=== PATIENT | female | born 1975 | race Caucasian/White ===

== ENCOUNTER 2017-09-21 19:11 | Emergency (ER) | payer OTHER, MEDICAID ==
[2017-09-21 19:23] VITALS: BP 118/90
--- NOTE | 2017-09-21 19:33 | EDPHY ---
H & P Stated Complaint: LLFRONT TOOTH PAIN /ABSCESS Source: Patient Exam Limitations: No limitations - Personal History Current Tetanus/Diphtheria Vaccine: No Current Tetanus Diphtheria and Acellular Pertussis (TDAP): No Tetanus Vaccine Date: 2003 - Medical/Surgical History Hx Asthma: No Hx Chronic Respiratory Disease: No Hx Diabetes: No Hx Cardiac Disease: No Hx Renal Disease: No Hx Cirrhosis: No Hx Alcoholism: No Hx HIV/AIDS: No Hx Splenectomy or Spleen Trauma: No Other PMH: CROHNS/ILEOSTOMY, anxiety - Social History Smoking Status: Never smoked Time Seen by Provider: 09/21/17 19:32 HPI/ROS: HPI: This is a 42-year-old female who presents with Chief Complaint: Left lower front tooth pain Location: Left lower front teeth Quality: Pain Duration: 2-3 days Signs and Symptoms: No bleeding, no radiation, no numbness, no weakness, no tingling, no headache, no decreased range of motion, no swelling, + pain, no fever, no difficulty swallowing, + pain with hot and cold foods, + pain with chewing Timing: Acute Severity: 01/15 Context: Patient reports over the last 2-3 days, she has had gradually worsening pain, of her left lower front teeth. She reports that she has multiple dental cavities. She follows with Dental Aide, Dr. Perkins. She called yesterday for an appointment but she has not received a phone call back. She reports sensitivity to hot and cold foods. She reports increased pain in her front teeth when she chews on hard objects. Denies jaw swelling/difficulty swallowing/difficulty talking/neck pain. She has tried no [id number] pain medication. Modifying Factors: None Comment: ROS: see HPI Constitutional: No fever, no chills, no weight loss Eyes: No blurred vision Respiratory: No shortness of breath, no cough Cardiovascular: No chest pain Gastrointestinal: No nausea, no vomiting no diarrhea Genitourinary: No dysuria Extremities: No myalgias Neurologic: No weakness, no numbness Skin: No rashes Hematologic: No bruising, no bleeding MEDICAL/SURGICAL/SOCIAL HISTORY: Medical/surgical history: CROHN DISEASE/ILEOSTOMY, anxiety Social history: Unemployed. Family history noncontributory. CONSTITUTIONAL: Polite and cooperative adult white female, awake and alert, no obvious distress HEENT: Atraumatic and normocephalic, PERRL, EOMI. Tympanic membranes clear. Oropharynx clear, poor dentition, tooth #24 and #23 black in color; no gingival erythema/swelling/fluctuance. No jaw swelling. No malocclusion. no exudate and moist pink mucosa. Airway patent. No lymphadenopathy. No meningismus. Cardiovascular: Normal S1/S2, regular rate, regular rhythm, without murmur rub or gallop. PULMONARY/CHEST: Symmetrical and nontender. Clear to auscultation bilaterally. Good air movement. No accessory muscle usage. ABDOMEN: Soft, nondistended, nontender, no rebound, no guarding, no peritoneal signs, no masses or organomegaly. No CVAT. EXTREMITIES: 2/2 pulses, strength 5/5, no deformities, no clubbing, no cyanosis or edema. NEUROLOGICAL: no focal neuro deficits. GCS 15. SKIN: Warm and dry, no erythema. no rash. Good capillary refill. (Tamika Box) Constitutional: Initial Vital Signs Temperature (C) 37.1 C 09/21/17 19:21 Heart Rate 67 09/21/17 19:21 Respiratory Rate 18 09/21/17 19:21 Blood Pressure 118/90 H 09/21/17 19:21 O2 Sat (%) 98 09/21/17 19:21 O2 Delivery Mode Room Air Allergies/Adverse Reactions: morphine Allergy (Mild, Verified 09/21/17 19:23) Itching Home Medications: Medication Instructions Recorded ALPRAZolam [Xanax 1 MG (*)] 1 mg PO BID 07/11/13 HYDROcodone/APAP 10/325 [[place] 1 tab PO Q4 PRN 07/11/13 10/325 (*)] FENTANYL 07/15/15 Furosemide 07/15/15 Promethazine HCl [Phenergan 25mg 25 mg PO Q6-8PRN PRN #20 tab 07/15/15 (RX)] Amoxicillin Trihydrate 500 mg PO TID 7 Days cap 09/21/17 [Amoxicillin] Gabapentin 600 mg PO 09/21/17 Propranolol HCl 20 mg PO 09/21/17 Venaflex 09/21/17 traMADol [Ultram 50 mg (*)] 50 mg PO Q8 PRN #6 tab 09/21/17 Medical Decision Making ED Course/Re-evaluation: No signs of facial cellulitis/periapical abscess/dehydration Given Percocet and Amoxicillin with adequate pain relief. Passed p.o. Trial prior to discharge. Advised to follow up with Dental Aide This patient was seen under the supervision of my secondary supervising physician. I evaluated care for this patient independently. (Tamika Box) Differential Diagnosis: Differential diagnosis includes but is not limited to dental cavity, dental trauma, dental abscess, gingivitis. (Tamika Box) Other Provider: PDMP search 09/12/17 120 hydrocodone 10/acetaminophen, 09/12/17 fentanyl patch, 120 hydrocodone/aceta. (Jose Carcamo) - Data Points Medications Given: Discontinued Medications Amoxicillin (Amoxicillin) 1,000 mg PO EDNOW ONE PRN Reason: Protocol Stop: 09/21/17 19:36 Last Admin: 09/21/17 19:47 Dose: 1,000 mg Departure - Departure Disposition: Home, Routine, Self-Care Clinical Impression: Odontalgia, Dental caries Condition: Good Instructions: Amoxicillin (By mouth), Tramadol (By mouth), Dental Abscess (ED) , Toothache (ED) Additional Instructions: Consume a minimum of 8-10 glasses of water or electrolyte fluid replacement drinks that include Gatorade, Powerade, Pedialyte. Eat a soft diet and avoid hot and cold foods/liquids until all tooth pain has resolved. Take Amoxicillin 3 times a day x 7 days. Follow-up with Dental Aide, Dr. Perkins, as soon as possible. Referrals: [facility] [Outside] - 2-3 days, call for appt. Prescriptions: Amoxicillin Trihydrate [Amoxicillin] 500 mg PO TID 7 Days cap traMADol [Ultram 50 mg (*)] 50 mg PO Q8 PRN #6 tab PRN Reason: Pain, Severe
== END 2017-09-21 19:52 | disposition home or self-care (01) ==
DX: K02.9 Dental caries, unspecified (principal)

== ENCOUNTER 2018-06-01 12:29 | Emergency (ER) | payer OTHER, MEDICAID ==
[2018-06-01] MEDS ORDERED: NS 1,000 ML IV ONE ×3 (12:59→14:34)
[2018-06-01] MEDS ORDERED: ONDANSETRON 4 MG/2 ML VIAL IVP ONE (12:59)
--- NOTE | 2018-06-01 13:01 | EDPHY ---
H & P Stated Complaint: N/V abd pain - Personal History LMP (Females 10-55): 8-14 Days Ago Current Tetanus/Diphtheria Vaccine: Yes Tetanus Vaccine Date: 2003 - Medical/Surgical History Hx Asthma: No Hx Chronic Respiratory Disease: No Hx Diabetes: No Hx Cardiac Disease: No Hx Renal Disease: No Hx Cirrhosis: No Hx Alcoholism: No Hx HIV/AIDS: No Hx Splenectomy or Spleen Trauma: No Other PMH: CROHNS/ILEOSTOMY, anxiety - Social History Smoking Status: Never smoked Time Seen by Provider: 06/01/18 12:52 HPI/ROS: Chief Complaint: Abdominal pain, nausea, vomiting HPI: 33-year-old woman with a history of chronic abdominal pain secondary to multiple Crohn's surgeries is presenting with 2 days of nausea vomiting and unable to keep anything down. Patient states that because she has not been able to keep anything down she has not been able to take her [place]. She is having abdominal pain consistent with her usual. No new symptoms. No fevers or chills. She is having some right flank pain as well. She has not urinated for 2 days secondary to her dehydration. Pain is currently about a 8/10. ROS: 10 systems were reviewed and were negative except those elements noted in the HPI. PMH: Crohn's disease, chronic abdominal pain Social History: No smoking, no alcohol, no recreational drug use Family History: non-contributory Physical Exam: Gen: Awake, Alert, No Distress HEENT: Nose: no rhinorrhea Eyes: PERRLA, EOMI Mouth: Moist mucosa Neck: Supple, no JVD Chest: nontender, lungs clear to auscultation Heart: S1, S2 normal, no murmur Abd: Soft, mild generalized tenderness, nonfocal, no guarding Back: no CVA tenderness, no midline tenderness Ext: no edema, non-tender Skin: no rash Neuro: CN II-XII intact, Sensation grossly intact, Strength 5/5 in bilateral upper and lower extremities (Jurgen Still) Constitutional: Initial Vital Signs Temperature (C) 36.5 C 06/01/18 12:33 Heart Rate 92 06/01/18 12:33 Respiratory Rate 18 06/01/18 12:33 Blood Pressure 105/77 06/01/18 12:33 O2 Sat (%) 95 06/01/18 12:33 O2 Delivery Mode Room Air Allergies/Adverse Reactions: morphine Allergy (Mild, Verified 06/01/18 12:36) Itching Home Medications: Medication Instructions Recorded ALPRAZolam [Xanax 1 MG (*)] 1 mg PO BID 07/11/13 HYDROcodone/APAP 10 [[place] 1 tab PO Q4 PRN 07/11/13 10325 (*)] FENTANYL 07/15/15 Furosemide 07/15/15 Promethazine HCl [Phenergan 25mg 25 mg PO Q6-8PRN PRN #20 tab 07/15/15 (RX)] Amoxicillin Trihydrate 500 mg PO TID 7 Days cap 09/21/17 [Amoxicillin] Gabapentin 600 mg PO 09/21/17 Propranolol HCl 20 mg PO 09/21/17 Venaflex 09/21/17 traMADol [Ultram 50 mg (*)] 50 mg PO Q8 PRN #6 tab 09/21/17 Medical Decision Making ED Course/Re-evaluation: 43-year-old with nausea vomiting dehydration. Soft benign abdomen. Normal ostomy output. Awaiting urinalysis results. Pain is somewhat improved is requesting more pain medication. Patient signed out to Dr. Hay pending improvement in condition. (Jurgen Still) 3:00 p.m.-I assumed care of this patient from Dr. Dos Santos. She has a history of narcotic dependence and presents with persistent nausea and vomiting. The plan is to discharge her home after IV hydration. Already given multiple medications , now requesting Benadryl. Benadryl 25 mg IV given. Urinalysis reveals 3-5 white blood cells, doubt UTI, will send urine culture. Interestingly, the patient's specific gravity is low, which indicates that she is not significantly dehydrated. 4 p.m.-resting comfortably with eyes closed. Tolerating oral fluids well on discharge, will discharge home. Follow up with PCP. (Emelia Hay) Differential Diagnosis: Differential diagnosis includes though it is not limited to appendicitis, cholecystitis, diverticulitis, pyelonephritis, bowel perforation, small bowel obstruction. (Emelia Hay) - Data Points Laboratory Results: Laboratory Results 06/01/18 13:36 06/01/18 13:36 06/01/18 06/01/18 06/01/18 15:22 13:36 13:36 WBC RBC Hgb Hct MCV MCH MCHC RDW Plt Count MPV Neut % (Auto) Lymph % (Auto) [place] % (Auto) Eos % (Auto) Baso % (Auto) Nucleat RBC Rel Count Absolute Neuts (auto) Absolute Lymphs (auto) Absolute Monos (auto) Absolute Eos (auto) Absolute Basos (auto) Absolute Nucleated RBC Immature Gran % Immature Gran # Sodium 140 mEq/L mEq/L (135-145) Potassium 4.5 mEq/L mEq/L (3.5-5.2) Chloride 111 mEq/L H mEq/L (97-110) Carbon Dioxide 22 mEq/l mEq/l (22-31) Anion Gap 7 mEq/L mEq/L (6-14) BUN 11 mg/dL mg/dL (7-23) Creatinine 0.7 mg/dL mg/dL (0.6-1.0) Estimated GFR > 60 Glucose 84 mg/dL mg/dL (70-100) Calcium 8.6 mg/dL mg/dL (8.5-10.4) Total Bilirubin 0.7 mg/dL mg/dL (0.1-1.4) AST 34 IU/L IU/L (14-46) ALT 24 IU/L IU/L (9-52) Alkaline Phosphatase 57 IU/L IU/L (38-126) Total Protein 6.4 g/dL g/dL (6.3-8.2) Albumin 3.6 g/dL g/dL (3.5-5.0) Lipase 42 IU/L IU/L (23-300) Beta HCG, Qual NEGATIVE Specimen Hemolysis 132 Urine Color YELLOW Urine Appearance CLEAR Urine pH 5.0 (5.0-7.5) Ur Specific [place] 1.016 (1.002-1.030) Urine Protein NEGATIVE (NEGATIVE) Urine Ketones NEGATIVE (NEGATIVE) Urine Blood 1+ H (NEGATIVE) Urine Nitrate NEGATIVE (NEGATIVE) Urine Bilirubin NEGATIVE (NEGATIVE) Urine Urobilinogen NEGATIVE EU EU (0.2-1.0) Ur Leukocyte Esterase NEGATIVE (NEGATIVE) Urine RBC 1-3 /hpf /hpf (0-3) Urine WBC 3-5 /hpf H /hpf (0-3) Ur Epithelial Cells TRACE /lpf /lpf (NONE-1+) Urine Mucus 2+ /lpf H /lpf (NONE-1+) Urine Glucose NEGATIVE (NEGATIVE) 06/01/18 13:36 WBC 9.81 10^3/uL H 10^3/uL (3.80-9.50) RBC 4.87 10^6/uL 10^6/uL (4.18-5.33) Hgb 14.8 g/dL g/dL (12.6-16.3) Hct 42.3 % % (38.0-47.0) MCV 86.9 fL fL (81.5-99.8) MCH 30.4 pg pg (27.9-34.1) MCHC 35.0 g/dL g/dL (32.4-36.7) RDW 12.4 % % (11.5-15.2) Plt Count 297 10^3/uL 10^3/uL (150-400) MPV 10.4 fL fL (8.7-11.7) Neut % (Auto) 74.4 % H % (39.3-74.2) Lymph % (Auto) 16.3 % % (15.0-45.0) [place] % (Auto) 6.2 % % (4.5-13.0) Eos % (Auto) 2.3 % % (0.6-7.6) Baso % (Auto) 0.5 % % (0.3-1.7) Nucleat RBC Rel Count 0.0 % % (0.0-0.2) Absolute Neuts (auto) 7.29 10^3/uL H 10^3/uL (1.70-6.50) Absolute Lymphs (auto) 1.60 10^3/uL 10^3/uL (1.00-3.00) Absolute Monos (auto) 0.61 10^3/uL 10^3/uL (0.30-0.80) Absolute Eos (auto) 0.23 10^3/uL 10^3/uL (0.03-0.40) Absolute Basos (auto) 0.05 10^3/uL 10^3/uL (0.02-0.10) Absolute Nucleated RBC 0.00 10^3/uL 10^3/uL (0-0.01) Immature Gran % 0.3 % % (0.0-1.1) Immature Gran # 0.03 10^3/uL 10^3/uL (0.00-0.10) Sodium Potassium Chloride Carbon Dioxide Anion Gap BUN Creatinine Estimated GFR Glucose Calcium Total Bilirubin AST ALT Alkaline Phosphatase Total Protein Albumin Lipase Beta HCG, Qual Specimen Hemolysis Urine Color Urine Appearance Urine pH Ur Specific [place] Urine Protein Urine Ketones Urine Blood Urine Nitrate Urine Bilirubin Urine Urobilinogen Ur Leukocyte Esterase Urine RBC Urine WBC Ur Epithelial Cells Urine Mucus Urine Glucose Medications Given: Discontinued Medications Diphenhydramine HCl (Benadryl Injection) 25 mg IVP EDNOW ONE Stop: 06/01/18 13:04 Last Admin: 06/01/18 13:50 Dose: 25 mg Diphenhydramine HCl (Benadryl Injection) 25 mg IVP EDNOW ONE Stop: 06/01/18 15:42 Last Admin: 06/01/18 15:47 Dose: 25 mg Famotidine (Pepcid) 20 mg IVP EDNOW ONE Stop: 06/01/18 14:26 Last Admin: 06/01/18 14:30 Dose: 20 mg Fentanyl (Sublimaze) 50 mcg IVP EDNOW ONE Stop: 06/01/18 13:04 Last Admin: 06/01/18 13:50 Dose: 50 mcg Fentanyl (Sublimaze) 50 mcg IVP EDNOW ONE Stop: 06/01/18 15:20 Last Admin: 06/01/18 15:24 Dose: 50 mcg Sodium Chloride (Ns) 1,000 mls @ 0 mls/hr IV ONCE ONE; Wide Open PRN Reason: Protocol Stop: 06/01/18 13:00 Last Admin: 06/01/18 13:40 Dose: 1,000 mls Sodium Chloride (Ns) 1,000 mls @ 0 mls/hr IV ONCE ONE; Wide Open PRN Reason: Protocol Stop: 06/01/18 13:02 Last Admin: 06/01/18 14:06 Dose: 1,000 mls Sodium Chloride (Ns) 1,000 mls @ 0 mls/hr IV ONCE ONE; Wide Open PRN Reason: Protocol Stop: 06/01/18 14:35 Last Admin: 06/01/18 14:38 Dose: 1,000 mls Ketorolac Tromethamine (Toradol) 15 mg IVP EDNOW ONE Stop: 06/01/18 14:35 Last Admin: 12/25/18 14:39 Dose: 15 mg Ondansetron HCl (Zofran) 4 mg IVP EDNOW ONE Stop: 06/01/18 13:00 Last Admin: 06/01/18 13:50 Dose: 4 mg Ondansetron HCl (Zofran Odt 4 Mg Prepack#2) 1 btl TAKEHOME EDNOW ONE Stop: 06/01/18 15:59 Last Admin: 06/01/18 16:28 Dose: 1 btl Promethazine HCl (Phenergan) 12.5 mg IVP ONCE ONE Stop: 06/01/18 14:26 Last Admin: 06/01/18 14:31 Dose: 12.5 mg Departure - Departure Disposition: Home, Routine, Self-Care Clinical Impression: Vomiting Qualifiers: Vomiting type: unspecified Vomiting Intractability: intractable Nausea presence : with nausea Qualified Code(s): R11.2 - Nausea with vomiting, unspecified Condition: Good Instructions: Ondansetron (By mouth), Acute Nausea and Vomiting (ED) Additional Instructions: 1. Clear liquids for 24 hours. 2. Advance diet as tolerated. I suggest the BRAT diet to start: bananas, rice, applesauce and toast. 3. Return for worsening symptoms, persistent vomiting, abdominal pain, any concerns. 4. Zofran 1 tablet under the tongue every 6 hr as needed for nausea. Referrals: Christian Smart MD [Primary Care Provider] - As per Instructions
[2018-06-01] MEDS ORDERED: fentaNYL 100 MCG/2 ML INJ IVP ONE ×2 (13:03→15:19)
[2018-06-01 13:42] LABS: PLATELET COUNT 297 10^3/uL (150-400)
[2018-06-01] MEDS ORDERED: PROMETHAZINE HCL 25 MG/ML INJ IVP ONE (14:25)
[2018-06-01] MEDS ORDERED: FAMOTIDINE 20 MG/2 ML SDV IVP ONE (14:25)
[2018-06-01] MEDS ORDERED: KETOROLAC 15 MG/1 ML SDV IVP ONE (14:34)
[2018-06-01] MEDS ORDERED: ONDANSETRON 4MG PREPACK#2 BTL TAKEHOME ONE (15:58)
[2018-06-01 17:56] VITALS: BP 100/50
== END 2018-06-01 17:55 | disposition home or self-care (01) ==
DX: R11.2 Nausea with vomiting, unspecified (principal); K50.90 Crohn's disease, unspecified, without complications; F11.20 Opioid dependence, uncomplicated; E86.9 Volume depletion, unspecified
CPT/HCPCS: 96361; 96374; 96375; 96376; 99284; J1200; J1885; J2405; J2550; J3010

== ENCOUNTER 2018-07-02 10:16 | Emergency (ER) | payer OTHER, MEDICAID ==
--- NOTE | 2018-07-02 11:06 | EDPHY ---
H & P Stated Complaint: escudero n/v Time Seen by Provider: 07/02/18 11:01 HPI/ROS: HPI: This is a 43-year-old female who presents with Chief Complaint: Headache, nausea, vomiting Location: Head Quality: Pain Duration: SINCE THURSDAY Signs and Symptoms: no fever, + nausea, + vomiting, no photophobia, no noise sensitivity, no neck stiffness, no ear pain, no tinnitus, no nasal congestion, no sinus pressure, no weakness, no radiation, no aura Timing: Acute on chronic Severity: [id number] Context: Patient reports that she has a history of Crohn's disease status post ileostomy presents with onset Thursday of headache that she describes in the frontal portion that is consistent for her normal types of headaches accompanied by nausea and vomiting but denies photophobia, noise sensitivity, abdominal pain. Patient reports that she is followed by pain management and normally takes Bath 10 mg/325 mg tablets every 4-6 hours. She reports that over the last few days she has "only been able to keep 1-2 pills down." Patient denies any diarrhea, fever, back pain, urinary symptoms. Patient denies worse headache of her life or thunderclap symptoms. Patient has no prior history of migraine headaches and believes that this is related to poor oral intake and "inability to consume pain medications secondary to nausea." Patient is requesting IV pain medications. Patient reports that her abdomen feels the same as it always does and does not believe that this is related to her abdomen. Ileostomy is draining yellow stool. Modifying Factors: Bath Comment: ROS: A comprehensive 10 system review of systems is otherwise negative aside from elements mentioned in the history of present illness. MEDICAL/SURGICAL/SOCIAL HISTORY: Medical history: anxiety. LMP over 28 days ago. Surgical history: CROHN, ILEOSTOMY Social history: Never smoked. Family history noncontributory. CONSTITUTIONAL: Well-developed, well-nourished nontoxic-appearing middle-aged white female, awake and alert, no obvious distress HEENT: Atraumatic and normocephalic, PERRL, EOMI. Nares patent; no rhinorrhea; no nasal mucosal edema. Tympanic membranes clear. Oropharynx clear, no exudate and moist pink mucosa. Airway patent. No lymphadenopathy. No meningismus. Cardiovascular: Normal S1/S2, regular rate, regular rhythm, without murmur rub or gallop. PULMONARY/CHEST: Symmetrical and nontender. Clear to auscultation bilaterally. Good air movement. No accessory muscle usage. ABDOMEN: Soft, nondistended, mild periumbilical tenderness, ileostomy present. no rebound, no guarding, no peritoneal signs, no masses or organomegaly. No CVAT. EXTREMITIES: 2/2 pulses, strength 5/5, no deformities, no clubbing, no cyanosis or edema. NEUROLOGICAL: no focal neuro deficits. GCS 15. Cranial nerves 2-12 grossly intact. SKIN: Warm and dry, no erythema. no rash. Good capillary refill. Source: Patient, Old records Exam Limitations: No limitations - Personal History LMP (Females 10-55): Over 28 Days Ago Current Tetanus Diphtheria and Acellular Pertussis (TDAP): Unsure Tetanus Vaccine Date: 2003 - Medical/Surgical History Hx Asthma: No Hx Chronic Respiratory Disease: No Hx Diabetes: No Hx Cardiac Disease: No Hx Renal Disease: No Hx Cirrhosis: No Hx Alcoholism: No Hx HIV/AIDS: No Hx Splenectomy or Spleen Trauma: No Other PMH: CROHNS/ILEOSTOMY, anxiety - Social History Smoking Status: Never smoked Constitutional: Initial Vital Signs Temperature (C) 36.9 C 07/02/18 10:23 Heart Rate 91 07/02/18 10:23 Respiratory Rate 18 07/02/18 10:23 Blood Pressure 118/71 07/02/18 10:23 O2 Sat (%) 96 07/02/18 10:23 O2 Delivery Mode Room Air Allergies/Adverse Reactions: morphine Allergy (Mild, Verified 07/02/18 10:22) Itching Home Medications: Medication Instructions Recorded ALPRAZolam [Xanax 1 MG (*)] 1 mg PO BID 07/11/13 HYDROcodone/APAP 10/325 [Bath 1 tab PO Q4 PRN 07/11/13 10/325 (*)] Furosemide 07/15/15 Gabapentin 600 mg PO 09/21/17 Ondansetron Odt [Zofran Odt 4 mg 4 mg PO Q4 PRN #12 tab 07/02/18 (*)] Promethazine HCl 25 mg PO Q6 PRN #10 tablet 07/02/18 Medical Decision Making - Diagnostics Imaging Results: Imaging Impressions Abdomen Ultrasound 07/02/18 12:47 Impression: Uncomplicated cholelithiasis. Findings were discussed with Tamika Box PA-C at 13:55, on 07/02/2018. ED Course/Re-evaluation: Vital signs reviewed and stable upon arrival. Chart review shows that patient was here in May for similar complaints and received IV fentanyl 100 mcg. IV access, laboratory studies ordered I do not believe imaging of the head is indicated at this time is not worse headache of her life and no thunderclap symptoms. Abdomen is soft and nontender and I doubt surgical process. Patient given 3 L normal saline, IV Haldol 2.5 mg, IV Benadryl 50 mg, IV promethazine 12.5 mg. I Would like to try to avoid given patient opiate pain medications. [facility] aware does not show any opiate pain medications that the patient has received over the last year which is very interesting when she says that she is followed by pain management and takes Bath 10 mg/325 mg every 4-6 hours scheduled. 1205: Notified by RN that patient requesting IV Ativan. IV Ativan 1 mg ordered. 1206: Labs reviewed and show WBC 16 K with left shift, elevated T bili and conjugated bili. No acute kidney injury. Carbon dioxide 14, anion gap 20 1210: Chart review in [address] abdomen and pelvis scan shows cholelithiasis without cholecystitis. Right upper quadrant ultrasound ordered. Patient now complaining of burning in her esophagus and requesting pain medications for esophageal burning and reflux. IV Protonix 40 mg given 1310: marketing technology coordinator at bedside 1340: Called by radiologist, Dr. Urbina, Ultrasound shows 1 gallstone measuring 11 mm but no nicholas signs of cholecystitis. Normal common bile duct diameter. Referral to General surgery outpatient. Patient requesting home medications. Given Bath 10/325 mg per home dose. No episodes of vomiting 4 hr while in the emergency room. She will be discharged home with Zofran and Phenergan. This patient was seen under the supervision of my secondary supervising physician. I evaluated care for this patient with attending. Discussed this patient with Dr. Carcamo. Differential Diagnosis: Headache including but not limited to subarachnoid hemorrhage, migraine headache , tension headache and infectious causes such as meningitis, pharyngitis and sinusitis. - Data Points Laboratory Results: Laboratory Results 07/02/18 11:00 07/02/18 11:00 07/02/18 07/02/1819 11:00 11:00 11:00 WBC 16.11 10^3/uL H 10^3/uL (3.80-9.50) RBC 5.79 10^6/uL H 10^6/uL (4.18-5.33) Hgb 18.1 g/dL H g/dL (12.6-16.3) Hct 51.5 % H % (38.0-47.0) MCV 88.9 fL fL (81.5-99.8) MCH 31.3 pg pg (27.9-34.1) MCHC 35.1 g/dL g/dL (32.4-36.7) RDW 12.7 % % (11.5-15.2) Plt Count 442 10^3/uL H 10^3/uL (150-400) MPV 10.6 fL fL (8.7-11.7) Neut % (Auto) 85.6 % H % (39.3-74.2) Lymph % (Auto) 8.0 % L % (15.0-45.0) Bullock % (Auto) 5.5 % % (4.5-13.0) Eos % (Auto) 0.1 % L % (0.6-7.6) Baso % (Auto) 0.4 % % (0.3-1.7) Nucleat RBC Rel Count 0.0 % % (0.0-0.2) Absolute Neuts (auto) 13.81 10^3/uL H 10^3/uL (1.70-6.50) Absolute Lymphs (auto) 1.29 10^3/uL 10^3/uL (1.00-3.00) Absolute Monos (auto) 0.88 10^3/uL H 10^3/uL (0.30-0.80) Absolute Eos (auto) 0.01 10^3/uL L 10^3/uL (0.03-0.40) Absolute Basos (auto) 0.06 10^3/uL 10^3/uL (0.02-0.10) Absolute Nucleated RBC 0.00 10^3/uL 10^3/uL (0-0.01) Immature Gran % 0.4 % % (0.0-1.1) Immature Gran # 0.06 10^3/uL 10^3/uL (0.00-0.10) Sodium 137 mEq/L mEq/L (135-145) Potassium 5.2 mEq/L mEq/L (3.5-5.2) Chloride 103 mEq/L mEq/L (97-110) Carbon Dioxide 14 mEq/l L mEq/l (22-31) Anion Gap 20 mEq/L H mEq/L (6-14) BUN 16 mg/dL mg/dL (7-23) Creatinine 0.7 mg/dL mg/dL (0.6-1.0) Estimated GFR > 60 Glucose 100 mg/dL mg/dL (70-100) Calcium 9.8 mg/dL mg/dL (8.5-10.4) Total Bilirubin 2.4 mg/dL H mg/dL (0.1-1.4) Conjugated Bilirubin 1.5 mg/dL H mg/dL (0.0-0.5) Unconjugated Bilirubin 0.9 mg/dL mg/dL (0.0-1.1) AST 66 IU/L H IU/L (14-46) ALT < 6 IU/L L IU/L (9-52) Alkaline Phosphatase 115 IU/L IU/L (38-126) Total Protein 9.5 g/dL H g/dL (6.3-8.2) Albumin 5.6 g/dL H g/dL (3.5-5.0) Lipase 41 IU/L IU/L (23-300) Beta HCG, Qual NEGATIVE Specimen Hemolysis 378 Medications Given: Discontinued Medications Hydrocodone Bitart/Acetaminophen (Bath 5/325) 2 tab PO EDNOW ONE Stop: 07/02/18 14:07 Last Admin: 07/02/18 14:10 Dose: 2 tab Diphenhydramine HCl (Benadryl Injection) 50 mg IVP EDNOW ONE Stop: 07/02/18 11:13 Last Admin: 07/02/18 11:22 Dose: 50 mg Haloperidol Lactate (Haldol Injection) 2.5 mg IVP EDNOW ONE Stop: 07/02/18 11:13 Last Admin: 07/02/18 11:21 Dose: 2.5 mg Sodium Chloride (Ns) 1,000 mls @ 0 mls/hr IV EDNOW ONE; Wide Open PRN Reason: Protocol Stop: 07/02/18 11:12 Last Admin: 07/02/18 11:20 Dose: 1,000 mls Sodium Chloride (Ns) 1,000 mls @ 0 mls/hr IV EDNOW ONE; Wide Open PRN Reason: Protocol Stop: 07/02/18 11:12 Last Admin: 07/02/18 11:31 Dose: 1,000 mls Sodium Chloride (Ns) 1,000 mls @ 0 mls/hr IV EDNOW ONE; Wide Open PRN Reason: Protocol Stop: 07/02/18 13:11 Last Admin: 07/02/18 13:39 Dose: 1,000 mls Lorazepam (Ativan Injection) 1 mg IVP EDNOW ONE Stop: 07/02/18 11:59 Last Admin: 07/02/18 12:04 Dose: 1 mg Pantoprazole Sodium (Protonix) 40 mg IVP EDNOW ONE Stop: 07/02/18 12:06 Last Admin: 07/02/18 12:17 Dose: 40 mg Promethazine HCl (Phenergan) 12.5 mg IVP EDNOW ONE Stop: 07/02/18 11:12 Last Admin: 07/02/18 11:23 Dose: 12.5 mg Departure - Departure Disposition: Home, Routine, Self-Care Clinical Impression: Ileostomy in place, Cholelithiasis without cholecystitis, Chronic pain disorder , Chronic use of opiate drugs therapeutic purposes Condition: Good Instructions: Ileostomy Care (ED), Ileostomy Diet (ED) Additional Instructions: Consume a minimum of 8-10 glasses of water or electrolyte fluid replacement drinks that include Gatorade, Powerade, Pedialyte. Eat a bland diet for the next 48 hours and then slowly advance as tolerated. Take Zofran 1 tab every 4 hours as needed for nausea, vomiting. Take Promethazine 1 tab every 6 hr as needed for nausea, vomiting not relieved by Zofran. Follow-up with pain management requiring chronic pain. Follow-up with Gastroenterology regarding gallstones. Return to the Emergency Room if symptoms do not resolve in the next 72 hours, you spike a fever > 102 F, or experience intractable abdominal pain/nausea/ vomiting. Referrals: Christian Smart MD [Primary Care Provider] - As per Instructions Apoorva Hermosillo MD [Medical Doctor] - As per Instructions Prescriptions: Ondansetron Odt [Zofran Odt 4 mg (*)] 4 mg PO Q4 PRN #12 tab PRN Reason: Nausea/Vomiting, Use 1st Promethazine HCl 25 mg PO Q6 PRN #10 tablet PRN Reason: Nausea/Vomiting, Use 2nd
[2018-07-02] MEDS ORDERED: PROMETHAZINE HCL 25 MG/ML INJ IVP ONE (11:11)
[2018-07-02] MEDS ORDERED: NS 1,000 ML IV ONE ×3 (11:11→13:10)
[2018-07-02] MEDS ORDERED: HALOPERIDOL LACT 5 MG/ML INJ IVP ONE (11:12)
[2018-07-02 11:21] LABS: PLATELET COUNT 442 10^3/uL (150-400)
[2018-07-02] MEDS ORDERED: LORazepam 2 MG/ML INJ IVP ONE (11:58)
[2018-07-02] MEDS ORDERED: PANTOPRAZOLE SODIUM 40 MG VIAL IVP ONE (12:05)
[2018-07-02 13:41] VITALS: BP 107/67
[2018-07-02] MEDS ORDERED: HYDROCODONE/APAP 5/325 TAB PO ONE (14:06)
== END 2018-07-02 14:20 | disposition home or self-care (01) ==
DX: K80.20 Calculus of gallbladder without cholecystitis without obstruction (principal); G89.29 Other chronic pain; R51 Headache; E86.9 Volume depletion, unspecified; Z79.891 Long term (current) use of opiate analgesic; Z93.2 Ileostomy status
CPT/HCPCS: 76705; 96361; 96374; 96375; 99285; J1200; J1630; J2060; J2550

== ENCOUNTER 2018-12-06 12:34 | Emergency (ER) | payer OTHER, MEDICAID | END 2018-12-06 16:55 | disposition home or self-care (01) ==